=== PATIENT | male | born 1985 | race Hispanic/Latino ===

== ENCOUNTER 2017-08-30 12:56 | Emergency (ER) | payer OTHER ==
[2017-08-30] MEDS ORDERED: NA BORATE/BORIC AC/H2O/NACL 120 ML OPHTH IRRIG SOLN ONE (14:16)
[2017-08-30] MEDS ORDERED: FLUORESCEIN SODIUM 0.6 MG STRIP ONE (14:16)
[2017-08-30] MEDS ORDERED: TETRACAINE HCL 0.5% 4 ML OPHTH SOLN ONE (14:16)
== END 2017-08-30 14:59 | disposition home or self-care (01) ==
LOC: EDH 12:56
DX: S05.02XA Injury of conjunctiva and corneal abrasion without foreign body, left eye, initial encounter (principal); X04.XXXA Exposure to ignition of highly flammable material, initial encounter; Y93.89 Activity, other specified; Y92.89 Other specified places as the place of occurrence of the external cause; Y99.8 Other external cause status